=== PATIENT | male | born 1990 | race Caucasian/White ===

== ENCOUNTER 2023-04-08 22:21 | Emergency (ER) | payer OTHER ==
[~2023-04-08] VITALS: Ht 177.8 cm; Wt 72.6 kg
[2023-04-08 22:43] VITALS: BP 142/88
[2023-04-08] MEDS ORDERED: AMOCLA875 PO (22:51)
== END 2023-04-08 22:59 | disposition home or self-care (01) ==
LOC: ER 22:21
DX: J32.9 Chronic sinusitis, unspecified (principal)
CPT/HCPCS: A9270; J1885